=== PATIENT | female | born 1980 | race Caucasian/White ===

== ENCOUNTER 2018-11-29 11:49 | Inpatient (IN) | payer OTHER ==
[~2018-11-29] VITALS: Ht 160 cm; Wt 66.8 kg
[2018-12-01 08:45] VITALS: BP 118/81
== END 2018-12-01 17:20 | disposition home or self-care (01) | DRG 807 ==
LOC: LDOP 11:49 → LDIP 13:03 → 2NW 11-30 07:16
PROVIDERS: ADMIT Obstetrics & Gynecology; ATTEND Obstetrics & Gynecology
PROC: 10E0XZZ Delivery of Products of Conception, External Approach (ICD-10-PCS; principal; 2018-11-30)
PROC: 0KQM0ZZ Repair Perineum Muscle, Open Approach (ICD-10-PCS; 2018-11-30)
PROC: 3E0R3BZ Introduction of Anesthetic Agent into Spinal Canal, Percutaneous Approach (ICD-10-PCS; 2018-11-30)
PROC: 00HU33Z Insertion of Infusion Device into Spinal Canal, Percutaneous Approach (ICD-10-PCS; 2018-11-30)
PROC: 10907ZC Drainage of Amniotic Fluid, Therapeutic from Products of Conception, Via Natural or Artificial Opening (ICD-10-PCS; 2018-11-30)
DX: O60.14X0 Preterm labor third trimester with preterm delivery third trimester, not applicable or unspecified (principal); Z37.0 Single live birth; O70.1 Second degree perineal laceration during delivery; O75.89 Other specified complications of labor and delivery; Z3A.36 36 weeks gestation of pregnancy
CPT/HCPCS: 36415; S0020; 84112; 85025; 86850; 86900; 90715; G0378; J2540; J3010; J2590; J7050; J7120